=== PATIENT | female | born 1955 | race Caucasian/White ===

== ENCOUNTER 2017-10-03 13:09 | Emergency (ER) | payer BC, MEDICAID ==
--- NOTE | 2017-10-03 13:57 | EDM.PDOC ---
ED HPI GENERAL MEDICAL PROBLEM - General Stated Complaint: FALL ON ICE Time Seen by Provider: 10/03/17 13:31 Source of Information: Reports: Patient History Limitations: Reports: No Limitations - History of Present Illness INITIAL COMMENTS - FREE TEXT/NARRATIVE: Patient presents with right shoulder pain 1.5 hours after falling on the ice on her front step. She says she didn't hit the ground as her right arm hit something that broke her fall but cranked her right arm up above her head. She heard a pop and thought she probably just pulled something; then as the pain wasn't improving came to ER. She denies hitting her head. Denies LOC, head/ neck pain, visual change, back pain. Right Shoulder Pain Score (Numeric/FACES): 4 - Related Data Allergies Allergy/AdvReac Type Severity Reaction Status Date / Time clindamycin Allergy Indigestion Verified 09/20/15 13:08 Penicillins Allergy Other Verified 09/20/15 13:08 Home Meds: Home Meds . [No Known Home Meds] 10/03/17 [History] Past Medical History HEENT History: Reports: Impaired Vision Cardiovascular History: Reports: Hypertension Gastrointestinal History: Reports: Pancreatitis Genitourinary History: Reports: UTI, Recurrent, Other (See Below) Other Genitourinary History: bladder and kidney infection Musculoskeletal History: Reports: Fracture Neurological History: Reports: TIA Psychiatric History: Reports: Anxiety, Depression Endocrine/Metabolic History: Reports: Diabetes, Type II Dermatologic History: Reports: Eczema - Infectious Disease History Infectious Disease History: Reports: Chicken Pox, Measles, Mumps, Rubella - Past Surgical History Musculoskeletal Surgical History: Reports: ORIF, Other (See Below) Social & Family History - Tobacco Use Smoking Status *Q: Current Every Day Smoker Years of Tobacco use: 35 Packs/Tins Daily: 0.5 - Recreational Drug Use Recreational Drug Use: No Review of Systems - Review of Systems Review Of Systems: See Below Constitutional: Denies: Chills, Fever, Weakness Eyes: Denies: Decreased Acuity, Vision Change Ears: Denies: Dizziness Nose: Denies: Epistaxis Mouth/Throat: Denies: Pain, Hoarse Voice Respiratory: Denies: Shortness of Breath, Cough Cardiovascular: Denies: Chest Pain, Syncope GI/Abdominal: Denies: Abdominal Pain, Nausea, Vomiting Genitourinary: Denies: Dysuria, Incontinence Musculoskeletal: Reports: Shoulder Pain, Arm Pain. Denies: Neck Pain, Back Pain , Hand Pain, Leg Pain, Foot Pain Skin: Denies: Cyanosis, Jaundice, Mottled, Pallor, Diaphoresis Neurological: Reports: Tingling (a little in right thumb and long finger). Denies: Confusion, Dizziness, Headache, Numbness, Seizure, Syncope, Trouble Speaking, Difficulty Walking Psychiatric: Denies: Confusion, Agitation ED EXAM, GENERAL - Physical Exam Exam: See Below Exam Limited By: No Limitations General Appearance: Alert, WD/WN, Mild Distress (shoulder pain) Eye Exam: Bilateral Eye: EOMI, Normal Inspection, PERRL Ears: Normal External Exam, Hearing Grossly Normal Nose: Normal Inspection, No Blood Throat/Mouth: Normal Inspection, Normal Lips, Normal Voice, No Airway Compromise Head: Atraumatic, Normocephalic Neck: Normal Inspection, Supple, Non-Tender, Full Range of Motion Respiratory/Chest: No Respiratory Distress, Lungs Clear, Normal Breath Sounds, No Accessory Muscle Use Cardiovascular: Regular Rate, Rhythm, No Murmur Back Exam: Normal Inspection, Full Range of Motion. No: Paraspinal Tenderness, Vertebral Tenderness Extremities: Other (right proximal humerus is painful with movement. Elbow, wrist and hand are pain-free with good ROM. Sensation intact but not quite full /normal in right thumb and long finger.) Neurological: Alert, Oriented, Normal Cognition, No Motor/Sensory Deficits Psychiatric: Normal Affect, Normal Mood Skin Exam: Warm, Dry, Intact, Normal Color, Rash (she has a mild rash in right axilla and lateral chest that she says is from her nicotine patch; it seemed to show up when she smokes while wearing the patch.) Course - Vital Signs Last Recorded V/S: Last Vital Signs Temp 98.9 F 10/03/17 14:14 Pulse 64 10/03/17 14:14 Resp 20 10/03/17 14:14 BP 220/87 H 10/03/17 14:38 Pulse Ox 100 10/03/17 14:14 - Orders/Labs/Meds Orders: Active Orders 24 hr Category Date Time Status Shoulder Comp Rt [CR] Stat Exams 10/03/17 Ordered Acetaminophen/HYDROcodone [[place] 325-5 MG] Med 10/03/17 14:42 Ordered 1 tab PO Q4H PRN Cyclobenzaprine [Flexeril] Med 10/03/17 14:58 Ordered 10 mg PO TID PRN Medication Orders Hydrocodone Bitart/Acetaminophen ([place] 325-5 Mg) 1 tab PO Q4H PRN PRN Reason: shoulder pain Last Admin: 10/03/17 14:48 Dose: 1 tab Cyclobenzaprine HCl (Flexeril) 10 mg PO TID PRN PRN Reason: Muscle Spasm Last Admin: 10/03/17 15:12 Dose: 10 mg Meds: Medications Generic Name Dose Route Start Last Admin Trade Name Freq PRN Reason Stop Dose Admin Hydrocodone Bitart/Acetaminophen 1 tab 10/03/17 14:42 10/03/17 14:48 [place] 325-5 Mg PO 1 tab Q4H PRN Administration shoulder pain Cyclobenzaprine HCl 10 mg 10/03/17 14:58 10/03/17 15:12 Flexeril PO 10 mg TID PRN Administration Muscle Spasm - Re-Assessments/Exams Free Text/Narrative Re-Assessment/Exam: 10/03/17 15:00 Xrays confirm a right non-displaced comminuted proximal humerus fracture. A sling is placed for support and comfort. We discussed a shoulder immobilizer but she doesn't think she could manipulate that on her own. I discussed case with Dr. Ben Metcalf with [facility] who advised follow up with Dr. Teresa on since she wants to stay here in town if possible. She is having frequent painful muscle spasms in her right upper arm so will give her some Flexeril along with Hydrocodone/APAP for use as needed. She will call for appointment with ortho here in [place]. Also discussed her blood pressure which is significantly elevated today. She maintains that she gets regular checks in the clinic and it has been running in a good range since she stopped her blood pressure medications 6-8 months ago. She thinks it is only high today because of her pain. She doesn't want anything for it here in ER since she has metoprolol at home and she has a very high deductible so all medical costs are out of pocket for her so doesn't want metoprolol from ER. She will follow up with her PCP in a couple days for recheck of the blood pressure. Patient remained stable throughout ER course and was discharged to home. Departure - Departure Time of Disposition: 14:40 Disposition: Home, Self-Care 01 Condition: Good Clinical Impression: Proximal humerus fracture Qualifiers: Encounter type: initial encounter Fracture type: closed Fracture morphology: other fracture Fracture alignment: nondisplaced Laterality: right Qualified Code (s): S42.294A - Other nondisplaced fracture of upper end of right humerus, initial encounter for closed fracture - Discharge Information Instructions: Humerus Fracture Treated With Immobilization, [id number] Referrals: Arianna Espinosa MD [Primary Care Provider] - Additional Instructions: 1. Keep your arm in the sling except for showering and occasional elbow range of motion. Avoid activities that would put you at risk for further injury to the shoulder as it may displace the fracture which is in good position right now. 2. Take the pain medication muscle relaxant as directed. 3. Take a metoprolol at home and monitor your blood pressure 2-3 times/day. 4. Follow up with Dr. Keller in the next few days for evaluation of your blood pressure. 5. Return to ER as needed. - My Orders Last 24 Hours: My Active Orders 10/03/17 Shoulder Comp Rt [CR] Stat 10/03/17 14:42 Acetaminophen/HYDROcodone [[place] 325-5 MG] 1 tab PO Q4H PRN 10/03/17 14:58 Cyclobenzaprine [Flexeril] 10 mg PO TID PRN - Assessment/Plan Last 24 Hours: My Active Orders 10/03/17 Shoulder Comp Rt [CR] Stat 10/03/17 14:42 Acetaminophen/HYDROcodone [[place] 325-5 MG] 1 tab PO Q4H PRN 10/03/17 14:58 Cyclobenzaprine [Flexeril] 10 mg PO TID PRN
[2017-10-03 14:39] VITALS: BP 220/87
[2017-10-03] MEDS: Acetaminophen/HYDROcodone 325-5 MG Tab PO PRN (14:48)
[2017-10-03] MEDS: Cyclobenzaprine 10 MG Tab PO PRN (15:12)
== END 2017-10-03 15:15 | disposition home or self-care (01) ==
LOC: KA.ED 13:09
DX: S42.294A Other nondisplaced fracture of upper end of right humerus, initial encounter for closed fracture (principal); R21 Rash and other nonspecific skin eruption; I10 Essential (primary) hypertension; E11.9 Type 2 diabetes mellitus without complications; F17.210 Nicotine dependence, cigarettes, uncomplicated; Z88.0 Allergy status to penicillin; Z88.1 Allergy status to other antibiotic agents; W00.9XXA Unspecified fall due to ice and snow, initial encounter
CPT/HCPCS: 73030; 99283; A9270

== ENCOUNTER 2017-12-04 04:09 | Emergency (ER) | payer BC ==
[2017-12-04] MEDS ORDERED: Albuterol/Ipratropium 3.0-0.5 MG/3 ML Neb Soln ONE (04:53)
--- NOTE | 2017-12-04 04:57 | EDM.PDOC ---
ED HPI GENERAL MEDICAL PROBLEM - General Chief Complaint: General Stated Complaint: sob, cough Time Seen by Provider: 12/04/17 04:49 Source of Information: Reports: Patient History Limitations: Reports: No Limitations - History of Present Illness INITIAL COMMENTS - FREE TEXT/NARRATIVE: Patient is a 62-year-old female who presents to the emergency department this morning with a complaint of cough and chest tightness. Patient states that she is been waking up for the past 3 nights with similar symptoms of coughing fit and then tightness across chest. Symptoms resolved spontaneously. Patient admits to smoking, has productive cough, but unsure of color or consistency, and is not currently on hypertension medication. Patient states that she's been off BP medicine for almost a year because she says that it made her feel weak and it was decided between her and the [place] provider that she did not take medicine anymore. Patient states that she starts and stops medication without conferring with her medical provider. Patient states chest pain feels like a tightness after coughing spells, and then resolves spontaneously. His only had this complaint during the night, and not during the day. Patient denies fever, coughing up blood, nausea, vomiting, diarrhea, out of country travel, lower extremity edema, headache, or any trauma. Onset: Gradual Duration: Intermittent Location: Reports: Chest Quality: Reports: Other (Tightness) Severity: Mild Improves with: Reports: Rest Worsens with: Reports: Breathing Context: Denies: Trauma Associated Symptoms: Reports: Chest Pain, Cough, cough w sputum, Shortness of Breath. Denies: Nausea/Vomiting - Related Data Allergies Allergy/AdvReac Type Severity Reaction Status Date / Time clindamycin Allergy Indigestion Verified 12/04/17 04:13 Penicillins Allergy Other Verified 12/04/17 04:13 Home Meds: Home Meds Glucosamine [Glucosamine Sulfate] 500 mg PO BID 12/04/17 [History] Lutein/Minerals/Vit A,C & E [Ocuvite] 1 tab PO DAILY 12/04/17 [History] Multivitamin [Multivitamins] 1 tab PO BID 12/04/17 [History] Nicotine [Nicotine Patch] 21 mg TD ACBREAKFAST PRN 12/04/17 [History] PNV95/Ferrous Fumarate/FA [ Tablet] 1 tab PO DAILY 12/04/17 [History] guaiFENesin [Mucinex] 600 mg PO BEDTIME PRN 12/04/17 [History] Past Medical History HEENT History: Reports: Impaired Vision Cardiovascular History: Reports: Hypertension Gastrointestinal History: Reports: Pancreatitis Genitourinary History: Reports: UTI, Recurrent, Other (See Below) Other Genitourinary History: bladder and kidney infection Musculoskeletal History: Reports: Fracture Neurological History: Reports: TIA Psychiatric History: Reports: Anxiety, Depression Endocrine/Metabolic History: Reports: Diabetes, Type II Dermatologic History: Reports: Eczema - Infectious Disease History Infectious Disease History: Reports: Chicken Pox, Measles, Mumps, Rubella - Past Surgical History Musculoskeletal Surgical History: Reports: ORIF, Other (See Below) Social & Family History - Caffeine Use Caffeine Use: Reports: Coffee, Soda ED ROS GENERAL - Review of Systems Review Of Systems: ROS reveals no pertinent complaints other than HPI. Constitutional: Reports: No Symptoms HEENT: Reports: No Symptoms Respiratory: Reports: Shortness of Breath, Pleuritic Chest Pain, Cough, Sputum. Denies: Hemoptysis Cardiovascular: Reports: No Symptoms Endocrine: Reports: No Symptoms GI/Abdominal: Reports: No Symptoms : Reports: No Symptoms Musculoskeletal: Reports: No Symptoms Skin: Reports: No Symptoms Neurological: Reports: No Symptoms Psychiatric: Reports: No Symptoms Hematologic/Lymphatic: Reports: No Symptoms Immunologic: Reports: No Symptoms ED EXAM, GENERAL - Physical Exam Exam: See Below Exam Limited By: No Limitations General Appearance: Alert, WD/WN, No Apparent Distress Eye Exam: Bilateral Eye: Normal Inspection Nose: Normal Inspection, Normal Mucosa, No Blood Throat/Mouth: Normal Inspection, Normal Oropharynx, No Airway Compromise Head: Atraumatic, Normocephalic Neck: Normal Inspection, Supple, Non-Tender, Full Range of Motion Respiratory/Chest: No Respiratory Distress, Lungs Clear, Normal Breath Sounds, No Accessory Muscle Use, Chest Non-Tender Cardiovascular: Regular Rate, Rhythm, No Murmur GI/Abdominal: Normal Bowel Sounds, Soft, Non-Tender Back Exam: Normal Inspection. No: CVA Tenderness (L), CVA Tenderness (R) Extremities: Normal Inspection, No Pedal Edema Neurological: Alert, Oriented, Normal Cognition Psychiatric: Normal Affect, Normal Mood Skin Exam: Warm, Dry, Intact, Normal Color, No Rash Lymphatic: No Adenopathy EKG INTERPRETATION EKG Date: 12/04/17 Time: 04:40 Rhythm: NSR Rate (Beats/Min): 86 [place]: Normal P-Wave: Present QRS: LBBB ST-T: Normal QT: Normal Comparison: Change From Previous EKG Course - Orders/Labs/Meds Orders: Active Orders 24 hr Category Date Time Status Cardiac Monitoring [RC] . DIRECTED Care 12/04/17 04:50 Ordered EKG Documentation Completion [RC] ASDIRECTED Care 12/04/17 04:21 Active RT Aerosol Therapy [RC] ASDIRECTED Care 12/04/17 04:51 Ordered Chest 2V [CR] Stat Exams 12/04/17 04:20 Taken CBC WITH AUTO DIFF [HEME] Stat Lab 12/04/17 04:50 Ordered COMPREHENSIVE METABOLIC PN,CMP [CHEM] Stat Lab 12/04/17 04:50 Ordered TROPONIN I [CHEM] Stat Lab 12/04/17 04:50 Ordered Albuterol/Ipratropium [DuoNeb 3.0-0.5 MG/3 ML] Med 12/04/17 05:00 Ordered 3 ml NEB ONETIME EKG 12 Lead [EK] Routine Ther 12/04/17 04:21 Ordered Medication Orders Albuterol/Ipratropium (Duoneb 3.0-0.5 Mg/3 Ml) 3 ml NEB ONETIME ALISON Meds: Medications Generic Name Dose Route Start Last Admin Trade Name Freq PRN Reason Stop Dose Admin Albuterol/Ipratropium 3 ml 12/04/17 05:00 Duoneb 3.0-0.5 Mg/3 Ml NEB ONETIME ALISON - Radiology Interpretation Free Text/Narrative:: Chest x-ray shows no acute cardiopulmonary process - Re-Assessments/Exams Free Text/Narrative Re-Assessment/Exam: 12/04/17 05:33 Patient afebrile, nontoxic appearing, vital signs show hypertension, systolic 180-190 diastolic 90s. Suggested Patient taking lisinopril here in the emergency department, but she refused. While waiting for the lab work results, patient was resting comfortably, snoring loudly, with episodes of apnea. Suggested to the patient that she is highly suspicious for sleep apnea and need to reconsider taking blood pressure medicine if agreed to by her provider. Patient will follow-up at [facility] Wednesday or Wednesday. Departure - Departure Time of Disposition: 05:36 Disposition: Home, Self-Care 01 Condition: Good Clinical Impression: Sleep apnea in adult Hypertension Qualifiers: Hypertension type: unspecified Qualified Code(s): I10 - Essential (primary) hypertension - Discharge Information Instructions: Sleep Apnea, [id number], Hypertension, [id number] Referrals: Arianna Espinosa MD [Primary Care Provider] - Additional Instructions: Follow-up at [facility] within next 2-3 days. Return to emergency for an sooner if symptoms continue or worsen. - My Orders Last 24 Hours: My Active Orders 12/04/17 04:20 Chest 2V [CR] Stat 12/04/17 04:21 EKG Documentation Completion [RC] ASDIRECTED EKG 12 Lead [EK] Routine 12/04/17 04:50 Cardiac Monitoring [RC] . DIRECTED CBC WITH AUTO DIFF [HEME] Stat COMPREHENSIVE METABOLIC PN,CMP [CHEM] Stat TROPONIN I [CHEM] Stat 12/04/17 04:51 RT Aerosol Therapy [RC] ASDIRECTED 12/04/17 05:00 Albuterol/Ipratropium [DuoNeb 3.0-0.5 MG/3 ML] 3 ml NEB ONETIME - Assessment/Plan Last 24 Hours: My Active Orders 12/04/17 04:20 Chest 2V [CR] Stat 12/04/17 04:21 EKG Documentation Completion [RC] ASDIRECTED EKG 12 Lead [EK] Routine 12/04/17 04:50 Cardiac Monitoring [RC] . DIRECTED CBC WITH AUTO DIFF [HEME] Stat COMPREHENSIVE METABOLIC PN,CMP [CHEM] Stat TROPONIN I [CHEM] Stat 12/04/17 04:51 RT Aerosol Therapy [RC] ASDIRECTED 12/04/17 05:00 Albuterol/Ipratropium [DuoNeb 3.0-0.5 MG/3 ML] 3 ml NEB ONETIME Assessment:: Hypertension, suspected sleep apnea Plan: Follow-up at [facility] on Wednesday
[2017-12-04] MEDS ORDERED: Albuterol/Ipratropium 3.0-0.5 MG/3 ML Neb Soln NEB SCH (05:00)
[2017-12-04 05:26] VITALS: BP 200/89
[2017-12-04 05:27] LABS: CHLORIDE,CL 108 mmol/L (98-115); SODIUM,NA 140 mmol/L (136-145)
== END 2017-12-04 05:45 | disposition home or self-care (01) ==
LOC: KA.ED 04:09
DX: I10 Essential (primary) hypertension (principal); G47.30 Sleep apnea, unspecified; F41.9 Anxiety disorder, unspecified; F32.9 Major depressive disorder, single episode, unspecified; E11.9 Type 2 diabetes mellitus without complications; Z88.1 Allergy status to other antibiotic agents; Z88.0 Allergy status to penicillin; Z79.899 Other long term (current) drug therapy; Z87.440 Personal history of urinary (tract) infections; Z86.73 Personal history of transient ischemic attack (TIA), and cerebral infarction without residual deficits
CPT/HCPCS: 36415; 71046; 80053; 84484; 85025; 93005; 94640; 99284

== ENCOUNTER 2017-12-28 02:30 | Emergency (ER) | payer BC ==
--- NOTE | 2017-12-28 03:02 | EDM.PDOC ---
ED HPI GENERAL MEDICAL PROBLEM - General Stated Complaint: severe dyspnea, chest pressure Time Seen by Provider: 12/28/17 02:35 Source of Information: Reports: Patient History Limitations: Reports: No Limitations - History of Present Illness INITIAL COMMENTS - FREE TEXT/NARRATIVE: Patient arrives via ambulance with severe dyspnea and chest heaviness that started an hour ago. She says she has had a few episodes like this but milder over the past couple weeks. Tonight it is much worse. She denies known heart problems. She smokes 1/2 ppd x 42 years and is type II diabetic. She had a DuoNeb in the ambulance which didn't help. - Related Data Allergies Allergy/AdvReac Type Severity Reaction Status Date / Time clindamycin Allergy Indigestion Verified 12/28/17 03:14 Penicillins Allergy Other Verified 12/28/17 03:14 Home Meds: Home Meds Glucosamine [Glucosamine Sulfate] 500 mg PO BID 12/04/17 [History] Lutein/Minerals/Vit A,C & E [Ocuvite] 1 tab PO DAILY 12/04/17 [History] Multivitamin [Multivitamins] 1 tab PO BID 12/04/17 [History] Nicotine [Nicotine Patch] 21 mg TD ACBREAKFAST PRN 12/04/17 [History] PNV95/Ferrous Fumarate/FA [ Tablet] 1 tab PO DAILY 12/04/17 [History] guaiFENesin [Mucinex] 600 mg PO BEDTIME PRN 12/04/17 [History] Albuterol [Ventolin HFA] 2 puff INH QID PRN 12/28/17 [History] Albuterol/Ipratropium [DuoNeb 3.0-0.5 MG/3 ML] 3 ml NEB QID PRN 12/28/17 [ History] Past Medical History HEENT History: Reports: Impaired Vision Cardiovascular History: Reports: Hypertension Gastrointestinal History: Reports: Pancreatitis Genitourinary History: Reports: UTI, Recurrent, Other (See Below) Other Genitourinary History: bladder and kidney infection Musculoskeletal History: Reports: Fracture Neurological History: Reports: TIA Psychiatric History: Reports: Anxiety, Depression Endocrine/Metabolic History: Reports: Diabetes, Type II Dermatologic History: Reports: Eczema - Infectious Disease History Infectious Disease History: Reports: Chicken Pox, Measles, Mumps, Rubella - Past Surgical History Musculoskeletal Surgical History: Reports: ORIF, Other (See Below) Social & Family History - Caffeine Use Caffeine Use: Reports: Coffee, Soda ED ROS GENERAL - Review of Systems Review Of Systems: See Below Constitutional: Denies: Fever, Chills HEENT: Reports: No Symptoms Respiratory: Reports: Shortness of Breath. Denies: Wheezing, Cough, Sputum Cardiovascular: Reports: Chest Pain. Denies: Lightheadedness, Syncope Endocrine: Reports: No Symptoms GI/Abdominal: Reports: No Symptoms : Reports: No Symptoms Musculoskeletal: Reports: No Symptoms Skin: Denies: Cyanosis, Jaundice, Mottled, Pallor, Diaphoresis Neurological: Denies: Confusion, Dizziness, Headache, Weakness, Change in Speech Psychiatric: Reports: Anxiety. Denies: Agitation, Confusion ED EXAM, GENERAL - Physical Exam Exam: See Below Exam Limited By: No Limitations General Appearance: Alert, WD/WN, Moderate Distress, Thin Eye Exam: Bilateral Eye: EOMI, Normal Inspection, PERRL Ears: Normal External Exam, Hearing Grossly Normal Nose: Normal Inspection, No Blood Throat/Mouth: Normal Inspection, Normal Lips, Normal Voice, No Airway Compromise Head: Atraumatic, Normocephalic Neck: Normal Inspection, Full Range of Motion Respiratory/Chest: Lungs Clear, Respiratory Distress. No: Crackles, Rales, Rhonchi, Wheezing, Stridor Cardiovascular: Regular Rate, Rhythm, No Murmur GI/Abdominal: No Distention Extremities: Normal Inspection, Normal Range of Motion, No Pedal Edema Neurological: Alert, Oriented, Normal Cognition, No Motor/Sensory Deficits Psychiatric: Normal Affect, Anxious Skin Exam: Warm, Dry, Intact, Normal Color, No Rash Course - Orders/Labs/Meds Orders: Active Orders 24 hr Category Date Time Status EKG Documentation Completion [RC] ASDIRECTED Care 12/28/17 02:48 Ordered EKG 12 Lead [EK] Routine Ther 12/28/17 02:47 Ordered Labs: Laboratory Tests 12/28/17 12/28/17 12/28/17 Range/Units 02:30 02:30 02:30 WBC 11.5 H (5.0-10.0) 10^3/uL RBC 4.55 (3.80-5.50) 10^6/uL Hgb 14.5 (12.0-16.0) g/dL Hct 43.5 (37.0-47.0) % MCV 95.6 H (82.0-92.0) fL MCH 31.9 H (27.0-31.0) pg MCHC 33.4 (32.0-36.0) g/dL RDW 12.3 (11.5-14.5) % Plt Count 285 (150-300) 10^3/uL MPV 8.7 (7.4-10.4) fL Neut % (Auto) 62.8 (50.0-70.0) % Lymph % (Auto) 26.5 (20.0-40.0) % [place] % (Auto) 5.1 (2.0-8.0) % Eos % (Auto) 3.9 H (1.0-3.0) % Baso % (Auto) 1.7 H (0.0-1.0) % Neut # (Auto) 7.3 H (2.5-7.0) 10^3/uL Lymph # (Auto) 3.0 (1.0-4.0) 10^3/uL [place] # (Auto) 0.6 (0.1-0.8) 10^3/uL Eos # (Auto) 0.4 H (0.1-0.3) 10^3/uL Baso # (Auto) 0.2 H (0.0-0.1) 10^3/uL D-Dimer, Quantitative 533 H (<400) ng/mL Sodium 140 (136-145) mmol/L Potassium 3.9 (3.3-5.3) mmol/L Chloride 106 (98-115) mmol/L Carbon Dioxide 19.3 L (21.0-32.0) mmol/L BUN 30 H (6-25) mg/dL Creatinine 1.02 (0.51-1.17) mg/dL Est Cr Clr Drug Dosing TNP Estimated GFR (MDRD) 55 mL/min Glucose 296 H (70-110) mg/dL Calcium 8.8 (8.7-10.3) mg/dL Troponin I 0.04 (0.00-0.070) ng/mL - Re-Assessments/Exams Free Text/Narrative Re-Assessment/Exam: 12/28/17 03:[address] elevation in anterior leads with a LBBB. Patient is requiring 15 liter via non-rebreather to maintain adequate oxygenation. Discussed case with Dr. Epps, etl analyst, in [facility] who accepted for transfer. Since ALS ambulance brought her here and is ready to take her she was sent on her way and will receive Heparin bolus 4000, Brylinta 180 mg, ASA 324mg and nitro as needed en route. Departure - Departure Time of Disposition: 02:55 Disposition: DC/Tfer to Acute Hospital 02 Reason for Transfer *Q: Primary PCI Indicated Condition: Good Clinical Impression: D-dimer, elevated STEMI (ST elevation myocardial infarction) Qualifiers: Involved coronary artery: unspecified coronary artery Qualified Code(s): I21.3 - ST elevation (STEMI) myocardial infarction of unspecified site Dyspnea Qualifiers: Dyspnea type: acute respiratory distress Qualified Code(s): R06.03 - Acute respiratory distress - My Orders Last 24 Hours: My Active Orders 12/28/17 02:47 EKG 12 Lead [EK] Routine 12/28/17 02:48 EKG Documentation Completion [RC] ASDIRECTED - Assessment/Plan Last 24 Hours: My Active Orders 12/28/17 02:47 EKG 12 Lead [EK] Routine 12/28/17 02:48 EKG Documentation Completion [RC] ASDIRECTED
[2017-12-28 03:27] LABS: CHLORIDE,CL 106 mmol/L (98-115); SODIUM,NA 140 mmol/L (136-145)
[2017-12-28 08:34] VITALS: BP 173/113
== END 2017-12-28 02:45 ==
LOC: KA.ED 02:30
DX: I21.3 ST elevation (STEMI) myocardial infarction of unspecified site (principal); R06.03 Acute respiratory distress; R79.89 Other specified abnormal findings of blood chemistry; E11.9 Type 2 diabetes mellitus without complications; I10 Essential (primary) hypertension; Z88.1 Allergy status to other antibiotic agents; Z88.0 Allergy status to penicillin; Z79.899 Other long term (current) drug therapy
CPT/HCPCS: 36415; 80048; 84484; 85025; 85379; 93005; 99285

== ENCOUNTER 2017-12-31 01:52 | Emergency (ER) | payer BC ==
--- NOTE | 2017-12-31 02:28 | EDM.PDOC ---
ED HPI GENERAL MEDICAL PROBLEM - General Chief Complaint: Respiratory Problem Stated Complaint: gasping breaths Time Seen by Provider: 12/31/17 02:18 Source of Information: Reports: Patient History Limitations: Reports: No Limitations - History of Present Illness INITIAL COMMENTS - FREE TEXT/NARRATIVE: Patient is a 62-year-old female who presents to the emergency department this morning with a complaint of shortness of breath. She describes it as a gasping for air, then spontaneously resolves, and makes it difficult for her to sleep. No chest pain or radiation and these episodes did not occur during the day today. Patient was seen here on Wednesday, December 28 with similar episode. EKG showed left bundle branch block. However Cardiac enzymes are not elevated. Diagnosed with hypoxia and transferred to [facility]. Patient underwent cardiac catheterization and stent placement. Patient states that she's been placed on Brilinta post procedure. Patient denies chest pain, headache, nausea , vomiting, abdominal pain, or fever. Onset: Today, Gradual Duration: Minutes: Location: Reports: Chest Quality: Reports: Same as Previous Episode Severity: Mild Improves with: Reports: None Worsens with: Reports: None Context: Denies: Activity Associated Symptoms: Reports: Shortness of Breath Treatments NETWORK SUPPORT ANALYST: Reports: Breathing Treatments - Related Data Allergies Allergy/AdvReac Type Severity Reaction Status Date / Time clindamycin Allergy Indigestion Verified 12/31/17 02:07 Penicillins Allergy Other Verified 12/31/17 02:07 Home Meds: Home Meds Glucosamine [Glucosamine Sulfate] 500 mg PO BID 12/04/17 [History] Lutein/Minerals/Vit A,C & E [Ocuvite] 1 tab PO DAILY 12/04/17 [History] Multivitamin [Multivitamins] 1 tab PO BID 12/04/17 [History] PNV95/Ferrous Fumarate/FA [ Tablet] 1 tab PO DAILY 12/04/17 [History] Albuterol [Ventolin HFA] 2 puff INH QID PRN 12/28/17 [History] Aspirin 81 mg PO DAILY 12/31/17 [History] Carvedilol 6.25 mg PO BID 12/31/17 [History] Lisinopril 2.5 mg PO DAILY 12/31/17 [History] Ticagrelor [Brilinta] 90 mg PO BID 12/31/17 [History] predniSONE [Prednisone] 10 mg PO DAILY 12/31/17 [History] Past Medical History HEENT History: Reports: Impaired Vision Cardiovascular History: Reports: Hypertension Respiratory History: Reports: Sleep Apnea, Other (See Below) Other Respiratory History: Newly prescribed duonebs by MAE Castellano for shortness of breath. Gastrointestinal History: Reports: Pancreatitis Genitourinary History: Reports: UTI, Recurrent, Other (See Below) Other Genitourinary History: bladder and kidney infection Musculoskeletal History: Reports: Fracture Neurological History: Reports: TIA Psychiatric History: Reports: Anxiety, Depression Endocrine/Metabolic History: Reports: Diabetes, Type II Dermatologic History: Reports: Eczema - Infectious Disease History Infectious Disease History: Reports: Chicken Pox, Measles, Mumps, Rubella - Past Surgical History Musculoskeletal Surgical History: Reports: ORIF, Other (See Below) Social & Family History - Caffeine Use Caffeine Use: Reports: Coffee, Soda ED ROS GENERAL - Review of Systems Review Of Systems: ROS reveals no pertinent complaints other than HPI. Constitutional: Reports: No Symptoms HEENT: Reports: No Symptoms Respiratory: Reports: Shortness of Breath Cardiovascular: Reports: No Symptoms Endocrine: Reports: No Symptoms GI/Abdominal: Reports: No Symptoms : Reports: No Symptoms Musculoskeletal: Reports: No Symptoms Skin: Reports: No Symptoms Neurological: Reports: No Symptoms Psychiatric: Reports: No Symptoms Hematologic/Lymphatic: Reports: No Symptoms Immunologic: Reports: No Symptoms ED EXAM, GENERAL - Physical Exam Exam: See Below Exam Limited By: No Limitations General Appearance: Alert, WD/WN, No Apparent Distress Throat/Mouth: Normal Inspection, Normal Oropharynx, No Airway Compromise Head: Atraumatic, Normocephalic Neck: Normal Inspection Respiratory/Chest: No Respiratory Distress, Lungs Clear, Normal Breath Sounds, No Accessory Muscle Use, Chest Non-Tender Cardiovascular: Regular Rate, Rhythm, No Murmur GI/Abdominal: Normal Bowel Sounds, Soft, Non-Tender Back Exam: Normal Inspection. No: CVA Tenderness (L), CVA Tenderness (R) Extremities: Normal Inspection, No Pedal Edema Neurological: Alert, Oriented, Normal Cognition Psychiatric: Normal Affect, Normal Mood Skin Exam: Warm, Dry, Intact, Normal Color, No Rash EKG INTERPRETATION EKG Date: 12/31/17 Time: 02:05 Rhythm: NSR [place]: Normal P-Wave: Present QRS: LBBB Comparison: No Change Course - Vital Signs Last Recorded V/S: Last Vital Signs Temp 98.8 F 12/31/17 01:52 Pulse 85 12/31/17 01:52 Resp 16 12/31/17 01:52 BP 165/78 H 12/31/17 01:52 Pulse Ox 89 L 12/31/17 01:52 - Re-Assessments/Exams Free Text/Narrative Re-Assessment/Exam: 12/31/17 02:[address] Castro, it operations analyst at [facility]. After reviewing cardiac catheterization procedure notes, and current and prior EKGs, felt that could be related to Brilinta and suggest patient should be considered for transition to Plavix. Patient is afebrile, nontoxic appearing, vital signs stable, saturation 96% on room air,. Patient was given DuoNeb and felt much better. Patient offered admission for observation, however patient refused and states that she will follow-up with [facility] provider as scheduled today. Patient assured me that if she is unable to follow-up at [facility] today that she return to emergency department. 12/31/17 03:05 Departure - Departure Time of Disposition: 03:06 Disposition: Home, Self-Care 01 Condition: Good Clinical Impression: Dyspnea Qualifiers: Dyspnea type: unspecified Qualified Code(s): R06.00 - Dyspnea, unspecified COPD (chronic obstructive pulmonary disease) Qualifiers: COPD type: unspecified COPD Qualified Code(s): J44.9 - Chronic obstructive pulmonary disease, unspecified - Discharge Information Instructions: Shortness of Breath, Adult, [id number] Referrals: Hilaria Castellano SKIVER OPERATOR [Primary Care Provider] - Additional Instructions: Follow-up today with Hilaria at [facility]. Return to emergency department if symptoms continue or worsen. - Assessment/Plan Assessment:: Shortness of breath Plan: Follow-up with [facility] provider as scheduled today
[2017-12-31 02:44] VITALS: BP 143/76
[2017-12-31] MEDS ORDERED: Albuterol/Ipratropium 3.0-0.5 MG/3 ML Neb Soln ONE (02:49)
[2017-12-31] MEDS ORDERED: Albuterol/Ipratropium 3.0-0.5 MG/3 ML Neb Soln NEB ONE (02:51)
== END 2017-12-31 03:15 | disposition home or self-care (01) ==
LOC: SUPCPDRO 01:52 → KA.ED 01:52
DX: J44.9 Chronic obstructive pulmonary disease, unspecified (principal); I10 Essential (primary) hypertension; E11.9 Type 2 diabetes mellitus without complications; Z88.0 Allergy status to penicillin; Z88.1 Allergy status to other antibiotic agents; Z79.899 Other long term (current) drug therapy; Z79.82 Long term (current) use of aspirin
CPT/HCPCS: 94640; 99284

== ENCOUNTER 2018-01-23 01:22 | Emergency (ER) | payer BC ==
[~2018-01-23 01:22] MED LIST: Aspirin 81 MG Tab.Chew PO ONE
[2018-01-23] MEDS ORDERED: Albuterol/Ipratropium 3.0-0.5 MG/3 ML Neb Soln ONE (01:42)
[2018-01-23] MEDS ORDERED: Morphine 2 MG/ML Syringe ONE (01:43)
[2018-01-23] MEDS ORDERED: Albuterol/Ipratropium 3.0-0.5 MG/3 ML Neb Soln INH ONE (01:43)
[2018-01-23] MEDS ORDERED: Morphine 2 MG/ML Syringe IVPUSH ONE (01:45)
[2018-01-23] MEDS ORDERED: LORazepam 2 MG/ML SDV ONE (02:14)
[2018-01-23 02:15] LABS: ANION GAP 23.7 mmol/L (5-15); CHLORIDE,CL 104 mmol/L (98-115); SODIUM,NA 142 mmol/L (136-145)
[2018-01-23] MEDS ORDERED: LORazepam 2 MG/ML SDV IVPUSH ONE (02:17)
--- NOTE | 2018-01-23 03:02 | EDM.PDOC ---
ED HPI GENERAL MEDICAL PROBLEM - General Chief Complaint: Respiratory Problem Stated Complaint: resp distress Time Seen by Provider: 01/23/18 01:22 Source of Information: Reports: EMS, Old Records History Limitations: Reports: Altered Mental Status, Respiratory Distress - History of Present Illness INITIAL COMMENTS - FREE TEXT/NARRATIVE: 62-year-old female was brought in to the emergency room by EMS in acute respiratory distress syndrome. Patient states that she was having increasing shortness of breath and difficulty breathing approximately 11 PM this evening. She tried and not duo neb treatment without relief. She became increasingly anxious and cyanotic in her boyfriend had called EMS. Upon evaluation her blood pressures were 200/120 O2 saturations were not recordable she was tachycardic heart rate was in the 120s and was tachypneic with respirations in the 40s. Upon arrival she was very anxious and confused mildly combative. She has a long history of smoking with COPD and has had a recent coronary stenting 2 weeks ago. She is complaining of chest pain. She was started on nonrebreather mask at 10 L. She was given 481 mg chewable aspirin. She is given 2 of morphine IV. She was started on a nitro drip for chest pain and hypertension. She was converted to BiPAP. TeleMed was activated to help her recording. Onset: Today Onset Date: 01/22/18 Onset Time: 23:00 Duration: Hour(s):, Getting Worse Location: Reports: Chest Quality: Reports: Pressure Severity: Severe Improves with: Reports: None Worsens with: Reports: Breathing Associated Symptoms: Reports: Confusion, Diaphoresis, Shortness of Breath Treatments MANAGER AGRICULTURE: Reports: Other Medication(s) (DuoNeb and albuterol treatment) - Related Data Allergies Allergy/AdvReac Type Severity Reaction Status Date / Time clindamycin Allergy Indigestion Verified 01/23/18 01:29 Penicillins Allergy Other Verified 01/23/18 01:29 Home Meds: Home Meds Glucosamine [Glucosamine Sulfate] 1,500 mg PO DAILY 12/04/17 [History] Lutein/Minerals/Vit A,C & E [Ocuvite] 1 tab PO DAILY 12/04/17 [History] Multivitamin [Multivitamins] 1 tab PO DAILY 12/04/17 [History] PNV95/Ferrous Fumarate/FA [ Tablet] 1 tab PO DAILY 12/04/17 [History] Albuterol [Ventolin HFA] 2 puff INH QID PRN 12/28/17 [History] Aspirin 81 mg PO DAILY 12/31/17 [History] Carvedilol 6.25 mg PO BID 12/31/17 [History] Lisinopril 2.5 mg PO DAILY 12/31/17 [History] Ticagrelor [Brilinta] 90 mg PO BID 12/31/17 [History] predniSONE [Prednisone] 10 mg PO DAILY 12/31/17 [History] Past Medical History HEENT History: Reports: Impaired Vision Cardiovascular History: Reports: Hypertension Respiratory History: Reports: Sleep Apnea, Other (See Below) Other Respiratory History: Newly prescribed duonebs by MAE Castellano for shortness of breath. Gastrointestinal History: Reports: Pancreatitis Genitourinary History: Reports: UTI, Recurrent, Other (See Below) Other Genitourinary History: bladder and kidney infection Musculoskeletal History: Reports: Fracture Neurological History: Reports: TIA Psychiatric History: Reports: Anxiety, Depression Endocrine/Metabolic History: Reports: Diabetes, Type II Dermatologic History: Reports: Eczema - Infectious Disease History Infectious Disease History: Reports: Chicken Pox, Measles, Mumps, Rubella - Past Surgical History Musculoskeletal Surgical History: Reports: ORIF, Other (See Below) Social & Family History - Caffeine Use Caffeine Use: Reports: Coffee, Soda ED ROS GENERAL - Review of Systems Review Of Systems: See Below Constitutional: Reports: No Symptoms HEENT: Reports: No Symptoms Respiratory: Reports: Shortness of Breath Cardiovascular: Reports: Chest Pain, Blood Pressure Problem, Dyspnea on Exertion , Orthopnea. Denies: Syncope GI/Abdominal: Reports: No Symptoms : Reports: No Symptoms Musculoskeletal: Reports: Shoulder Pain Skin: Reports: Cyanosis Neurological: Reports: Confusion Psychiatric: Reports: Agitation, Anxiety, Confusion Hematologic/Lymphatic: Reports: No Symptoms Immunologic: Reports: No Symptoms ED EXAM, GENERAL - Physical Exam Exam: See Below Exam Limited By: Respiratory Distress General Appearance: Alert, Severe Distress Eye Exam: Bilateral Eye: EOMI, PERRL Nose: Normal Inspection, Normal Mucosa Throat/Mouth: Normal Inspection, Normal Oropharynx, Normal Voice, No Airway Compromise Head: Atraumatic Neck: Normal Inspection, Supple, Full Range of Motion. No: Lymphadenopathy (L) , Lymphadenopathy (R) Respiratory/Chest: Respiratory Distress, Decreased Breath Sounds, Wheezing, Accessory Muscle Use, Retractions Cardiovascular: Tachycardia GI/Abdominal: Soft Extremities: Slow Capillary Refill Neurological: Alert, Confused Psychiatric: Anxious Skin Exam: Cyanosis Lymphatic: No Adenopathy EKG INTERPRETATION EKG Date: 01/23/18 Time: 02:30 Rhythm: Other (tachycardia) Rate (Beats/Min): 103 P-Wave: Present QRS: LBBB Comparison: NA - No Prior EKG EKG Interpretation Comments: Sinus tachycardia Biatrial enlargement' Left bundle branch block Abnormal ECG Course - Orders/Labs/Meds Orders: Active Orders 24 hr Category Date Time Status Chest 1V Frontal [CR] Stat Exams 01/23/18 02:08 Ordered ABG [BLOOD GAS ARTERIAL] [BG] Stat Lab 01/23/18 02:09 Ordered Labs: Laboratory Tests 01/23/18 01/23/18 01/23/18 Range/Units 01:35 01:35 01:35 WBC 9.5 (5.0-10.0) 10^3/uL RBC 4.99 (3.80-5.50) 10^6/uL Hgb 15.5 (12.0-16.0) g/dL Hct 47.5 H (37.0-47.0) % MCV 95.2 H (82.0-92.0) fL MCH 31.2 H (27.0-31.0) pg MCHC 32.7 (32.0-36.0) g/dL RDW 12.2 (11.5-14.5) % Plt Count 285 (150-300) 10^3/uL MPV 7.6 (7.4-10.4) fL Neut % (Auto) 57.2 (50.0-70.0) % Lymph % (Auto) 28.4 (20.0-40.0) % [place] % (Auto) 7.8 (2.0-8.0) % Eos % (Auto) 4.9 H (1.0-3.0) % Baso % (Auto) 1.7 H (0.0-1.0) % Neut # (Auto) 5.4 (2.5-7.0) 10^3/uL Lymph # (Auto) 2.7 (1.0-4.0) 10^3/uL [place] # (Auto) 0.7 (0.1-0.8) 10^3/uL Eos # (Auto) 0.5 H (0.1-0.3) 10^3/uL Baso # (Auto) 0.2 H (0.0-0.1) 10^3/uL PT 9.9 (8.9-11.4) SEC INR 1.0 (0.9-1.1) Sodium 142 (136-145) mmol/L Potassium 4.8 (3.3-5.3) mmol/L Chloride 104 (98-115) mmol/L Carbon Dioxide 19.1 L (21.0-32.0) mmol/L Anion Gap 23.7 H (5-15) mmol/L BUN 42 H (6-25) mg/dL Creatinine 0.99 (0.51-1.17) mg/dL Est Cr Clr Drug Dosing TNP Estimated GFR (MDRD) 57 mL/min Glucose 240 mg/dL Calcium 8.9 (8.7-10.3) mg/dL Total Bilirubin 0.6 (0.2-1.0) mg/dL AST 30 (15-37) U/L ALT 32 (12-78) U/L Alkaline Phosphatase 135 H (46-116) IU/L Creatine Kinase 140 (26-276) U/L CK-MB (CK-2) 4.20 (0.00-4.30) ng/mL Troponin I < 0.04 (0.00-0.070) ng/mL B-Natriuretic Peptide 620 H (0-100) pg/mL Total Protein 7.8 (6.4-8.2) g/dL Albumin 3.44 (3.00-4.80) g/dL Meds: Medications Discontinued Medications Generic Name Dose Route Start Last Admin Trade Name Freq PRN Reason Stop Dose Admin Albuterol/Ipratropium Confirm 01/23/18 01:42 Duoneb 3.0-0.5 Mg/3 Ml Administered 01/23/18 01:43 Dose 3 ml .ROUTE .STK-MED ONE Lorazepam Confirm 01/23/18 02:14 Ativan Administered 01/23/18 02:15 Dose 2 mg .ROUTE .STK-MED ONE Morphine Sulfate Confirm 01/23/18 01:43 Morphine Administered 01/23/18 01:44 Dose 2 mg .ROUTE .STK-MED ONE - Re-Assessments/Exams Free Text/Narrative Re-Assessment/Exam: 01/23/18 03:20 Patient was started on BiPAP and her O2 saturations improved up to 90% She was started on a nitro drip and blood pressure stabilized She was given 1 mg IV Ativan and her anxiousness improved She was resting comfortably on BiPAP respiratory distress the and cyanosis improved Departure - Departure Time of Disposition: 15:00 Disposition: DC/Tfer to [facility] Condition: Serious Clinical Impression: Acute respiratory distress syndrome (ARDS), Hypoxia, Status post coronary artery stent placement COPD (chronic obstructive pulmonary disease) Qualifiers: COPD type: unspecified COPD Qualified Code(s): J44.9 - Chronic obstructive pulmonary disease, unspecified - Discharge Information - My Orders Last 24 Hours: My Active Orders 01/23/18 02:08 Chest 1V Frontal [CR] Stat 01/23/18 02:09 ABG [BLOOD GAS ARTERIAL] [BG] Stat - Assessment/Plan Last 24 Hours: My Active Orders 01/23/18 02:08 Chest 1V Frontal [CR] Stat 01/23/18 02:09 ABG [BLOOD GAS ARTERIAL] [BG] Stat Assessment:: Acute respiratory distress syndrome Hypoxia COPD Status post coronary stenting Plan: Patient's was a stabilized on BiPAP, nitro drip, and Ativan for acute respiratory distress syndrome. She was stabilized and maintained on the BiPAP and nitro drip was decreased at 10 mics. Her cyanosis resolved O2 saturations were 90% on BiPAP. When she was stabilized that she was transferred per [facility] to [facility] to the intensive care unit
[2018-01-24 02:03] VITALS: BP 133/78
[2018-01-24] MEDS ORDERED: Sodium Chloride 0.9% 5 ML Syringe FLUSH PRN (02:31)
== END 2018-01-23 02:54 | disposition critical access hospital (66) ==
LOC: KA.ED 01:22
DX: J80 Acute respiratory distress syndrome (principal); Z95.5 Presence of coronary angioplasty implant and graft; J44.9 Chronic obstructive pulmonary disease, unspecified; I10 Essential (primary) hypertension; E11.9 Type 2 diabetes mellitus without complications; F41.9 Anxiety disorder, unspecified; F32.9 Major depressive disorder, single episode, unspecified; Z86.73 Personal history of transient ischemic attack (TIA), and cerebral infarction without residual deficits; Z88.0 Allergy status to penicillin; Z87.440 Personal history of urinary (tract) infections; Z88.1 Allergy status to other antibiotic agents; Z79.899 Other long term (current) drug therapy; Z79.82 Long term (current) use of aspirin
CPT/HCPCS: 36415; 71045; 80053; 82550; 82553; 83880; 84484; 85025; 85610; 94660; 96365; 96375; 99285; A9270; J2060; J2270

== ENCOUNTER 2018-07-11 14:11 | Emergency (ER) | payer BC, OTHER, SELFPAY ==
[2018-07-11] MEDS ORDERED: Aspirin 81 MG Tab.Chew ONE ×2 (14:17→14:26)
[2018-07-11] MEDS ORDERED: Aspirin 81 MG Tab.Chew PO ONE (14:25)
[2018-07-11] MEDS ORDERED: Nitroglycerin 0.4 MG Tab.SL SL ONE ×2 (14:27→15:24)
[2018-07-11] MEDS ORDERED: Nitroglycerin 0.4 MG Tab.SL ONE (14:27)
--- NOTE | 2018-07-11 14:49 | CR ---
[id number] RAD/RAD Chest PA or AP 1V EXAM: RAD Chest PA or AP 1V INDICATION: CHEST PAIN. COMPARISON: January 23, 2018. DISCUSSION: Cardiomediastinal silhouette is stable in size and contour. No infiltrate, effusion, or pneumothorax. Mild pulmonary vascular congestion. IMPRESSION: Mild pulmonary vascular congestion. Tye Ramirez DO 07/11/18 1448 Thank you for allowing us to participate in the care of your patient.
[2018-07-11 14:56] LABS: ANION GAP 20.1 mmol/L (5-15); CHLORIDE,CL 101 mmol/L (98-115); SODIUM,NA 140 mmol/L (136-145)
[2018-07-11] MEDS ORDERED: Nitroglycerin 0.2 MG/HR Transdermal Patch TRDERM ONE (15:00)
--- NOTE | 2018-07-11 15:10 | EDM.PDOC ---
ED HPI GENERAL MEDICAL PROBLEM - General Chief Complaint: Chest Pain Stated Complaint: CHEST PAIN Time Seen by Provider: 07/11/18 14:24 Source of Information: Reports: Patient, Significant Other History Limitations: Reports: No Limitations - History of Present Illness INITIAL COMMENTS - FREE TEXT/NARRATIVE: Patient presents via ambulance with chest pressure and dyspnea that started abruptly at 1400 while riding in a car with her . She says this feels very much like she felt in December 2016 when she had an [facility] and had a stent placed. The dyspnea isn't quite as bad today as then. She also has tingling in her arms and says it is hard to talk because she feels so short of breath. ASA 81mg x 4 and nitro sl are given. About 2 minutes after the nitro the dyspnea and chest pressure improved remarkably. She is on Brilinta. Chest Pain Score (Numeric/FACES): 5 - Related Data Allergies Allergy/AdvReac Type Severity Reaction Status Date / Time clindamycin Allergy Indigestion Verified 07/11/18 14:36 Penicillins Allergy Other Verified 07/11/18 14:36 Home Meds: Home Meds Lutein/Minerals/Vit A,C & E [Ocuvite] 1 tab PO DAILY 12/04/17 [History] Albuterol [Ventolin HFA] 2 puff INH QID PRN 12/28/17 [History] Aspirin 81 mg PO DAILY 12/31/17 [History] Carvedilol 6.25 mg PO BID 12/31/17 [History] Lisinopril 10 mg PO DAILY 12/31/17 [History] Citalopram [Citalopram HBr] 20 mg PO DAILY 07/11/18 [History] Clopidogrel [Plavix] 75 mg PO DAILY 07/11/18 [History] Furosemide 20 mg PO DAILY PRN 07/11/18 [History] Rosuvastatin [Crestor] 20 mg PO DAILY 07/11/18 [History] hydrOXYzine pamoate [Hydroxyzine Pamoate] 25 mg PO DAILY PRN 07/11/18 [History] Past Medical History HEENT History: Reports: Impaired Vision Cardiovascular History: Reports: Hypertension, Stents Other Cardiovascular History: 1 stent placed December Respiratory History: Reports: Sleep Apnea, Other (See Below) Other Respiratory History: Newly prescribed duonebs by Erlandson, D[employer] SPECIALIST for shortness of breath. Gastrointestinal History: Reports: Pancreatitis Genitourinary History: Reports: UTI, Recurrent, Other (See Below) Other Genitourinary History: bladder and kidney infection Musculoskeletal History: Reports: Fracture Neurological History: Reports: TIA Psychiatric History: Reports: Anxiety, Depression Endocrine/Metabolic History: Reports: Diabetes, Type II Dermatologic History: Reports: Eczema - Infectious Disease History Infectious Disease History: Reports: Chicken Pox, Measles, Mumps, Rubella - Past Surgical History Musculoskeletal Surgical History: Reports: ORIF, Other (See Below) Social & Family History - Tobacco Use Smoking Status *Q: Current Every Day Smoker Years of Tobacco use: 20 Packs/Tins Daily: 1 - Caffeine Use Caffeine Use: Reports: Coffee, Soda - Alcohol Use Days Per Week of Alcohol Use: 1 Number of Drinks Per Day: 1 Total Drinks Per Week: 1 - Recreational Drug Use Recreational Drug Use: No ED ROS GENERAL - Review of Systems Review Of Systems: See Below Constitutional: Denies: Fever, Chills, Weakness HEENT: Denies: Throat Pain, Vision Change Respiratory: Reports: Shortness of Breath. Denies: Cough Cardiovascular: Reports: Chest Pain. Denies: Lightheadedness, Syncope GI/Abdominal: Denies: Abdominal Pain, Diarrhea, Vomiting : Reports: No Symptoms Musculoskeletal: Reports: Arm Pain. Denies: Neck Pain, Shoulder Pain Skin: Denies: Cyanosis, Jaundice, Mottled, Pallor, Diaphoresis Neurological: Denies: Confusion, Dizziness, Headache Psychiatric: Reports: Anxiety. Denies: Agitation, Confusion Hematologic/Lymphatic: Denies: Anemia ED EXAM, GENERAL - Physical Exam Exam: See Below Exam Limited By: No Limitations General Appearance: Alert, WD/WN, No Apparent Distress Eye Exam: Bilateral Eye: EOMI, Normal Inspection, PERRL Ears: Normal External Exam, Hearing Grossly Normal Nose: Normal Inspection, No Blood Throat/Mouth: Normal Inspection, Normal Lips, Normal Voice, No Airway Compromise Head: Atraumatic, Normocephalic Neck: Normal Inspection, Supple, Non-Tender, Full Range of Motion. No: Carotid Bruit Respiratory/Chest: No Respiratory Distress, Lungs Clear, Normal Breath Sounds, No Accessory Muscle Use Cardiovascular: Normal Peripheral Pulses, Regular Rate, Rhythm, No Edema, No Gallop, No JVD, No Murmur, No Rub Peripheral Pulses: 2+: Carotid (L), Carotid (R), Radial (L), Radial (R) GI/Abdominal: Normal Bowel Sounds, Soft, Non-Tender, No Organomegaly, No Distention Back Exam: No: CVA Tenderness (L), CVA Tenderness (R) Extremities: Normal Inspection, Normal Range of Motion, Non-Tender, No Pedal Edema Neurological: Alert, Oriented, Normal Cognition, No Motor/Sensory Deficits Psychiatric: Normal Affect, Normal Mood Skin Exam: Warm, Dry, Intact, Normal Color, No Rash Course - Vital Signs Last Recorded V/S: Last Vital Signs Temp 97.1 F 07/11/18 14:43 Pulse 48 L 07/11/18 15:04 Resp 13 07/11/18 15:04 BP 167/59 H 07/11/18 15:04 Pulse Ox 98 07/11/18 15:04 - Orders/Labs/Meds Orders: Active Orders 24 hr Category Date Time Status Cardiac Monitoring [RC] . DIRECTED Care 07/11/18 14:28 Active EKG Documentation Completion [RC] ASDIRECTED Care 07/11/18 14:28 Active EKG Documentation Completion [RC] ASDIRECTED Care 07/11/18 14:57 Ordered EKG 12 Lead [EK] Routine Ther 07/11/18 14:28 Ordered EKG 12 Lead [EK] Routine Ther 07/11/18 14:54 Ordered Labs: Laboratory Tests 07/11/18 07/11/18 Range/Units 14:20 14:20 WBC 8.73 (5.00-10.00) 10^3/uL RBC 4.15 (3.80-5.50) 10^6/uL Hgb 13.4 (12.0-16.0) g/dL Hct 39.2 (37.0-47.0) % MCV 94.5 H (82.0-92.0) fL MCH 32.3 H (27.0-31.0) pg MCHC 34.2 (32.0-36.0) g/dL RDW 11.6 (11.5-14.5) % Plt Count 288 (150-400) 10^3/uL MPV 8.8 (7.4-10.4) fL Immature Gran % (Auto) 0.2 (0.0-5.0) % Neut % (Auto) 62.9 (50.0-70.0) % Lymph % (Auto) 22.6 (20.0-40.0) % [place] % (Auto) 9.9 H (2.0-8.0) % Eos % (Auto) 3.7 H (1.0-3.0) % Baso % (Auto) 0.7 (0.0-1.0) % Immature Gran # (Auto) 0.02 (0.00-0.50) 10^3/uL Neut # (Auto) 5.50 (2.50-7.00) 10^3/uL Lymph # (Auto) 1.97 (1.00-4.00) 10^3/uL [place] # (Auto) 0.86 H (0.10-0.80) 10^3/uL Eos # (Auto) 0.32 H (0.10-0.30) 10^3/uL Baso # (Auto) 0.06 (0.00-0.10) 10^3/uL Sodium 140 (136-145) mmol/L Potassium 3.8 (3.3-5.3) mmol/L Chloride 101 (98-115) mmol/L Carbon Dioxide 22.7 (21.0-32.0) mmol/L Anion Gap 20.1 H (5-15) mmol/L BUN 24 (6-25) mg/dL Creatinine 1.11 (0.51-1.17) mg/dL Est Cr Clr Drug Dosing TNP Estimated GFR (MDRD) 49 mL/min Glucose 93 (75 - 99) mg/dL Calcium 9.3 (8.7-10.3) mg/dL Total Bilirubin 0.5 (0.2-1.0) mg/dL AST 21 (15-37) U/L ALT 35 (12-78) U/L Alkaline Phosphatase 119 H (46-116) IU/L Troponin I < 0.04 (0.00-0.070) ng/mL Total Protein 7.8 (6.4-8.2) g/dL Albumin 4.00 (3.00-4.80) g/dL Meds: Medications Discontinued Medications Generic Name Dose Route Start Last Admin Trade Name Freq PRN Reason Stop Dose Admin Aspirin Confirm 07/11/18 14:17 07/11/18 14:30 Aspirin Administered 07/11/18 14:18 Not Given Dose 243 mg .ROUTE .STK-MED ONE Aspirin 324 mg 07/11/18 14:25 07/11/18 14:29 Aspirin PO 07/11/18 14:26 324 mg ONETIME ONE Administration Aspirin Confirm 07/11/18 14:26 07/11/18 14:30 Aspirin Administered 07/11/18 14:27 Not Given Dose 81 mg .ROUTE .STK-MED ONE Nitroglycerin 0.4 mg 07/11/18 14:27 07/11/18 14:29 Nitrostat SL 07/11/18 14:28 0.4 mg ONETIME ONE Administration Nitroglycerin Confirm 07/11/18 14:27 07/11/18 14:30 Nitrostat Administered 07/11/18 14:28 Not Given Dose 0.4 mg .ROUTE .STK-MED ONE Nitroglycerin 0.2 mg 07/11/18 15:00 07/11/18 15:01 Nitro-Dur 0.2 Mg/Hr TRDERM 07/11/18 15:01 0.2 mg ONETIME ONE Administration - Re-Assessments/Exams Free Text/Narrative Re-Assessment/Exam: 07/11/18 15:18 I discussed case with counselor manager, Dr. Zhang, who wants her transferred up and advised a nitro patch but no heparin. I then discussed with hospitalist, Dr. Tate who accepted for transfer. Patient has been improved since the initial dose of nitro. Discussed findings and recommendations with pt and her . Patient is stable. 07/11/18 15:24 As she was getting ready to leave the chest pressure and tingling in arms returned. BP is 176/53 so another nitro is given. Departure - Departure Time of Disposition: 15:05 Disposition: DC/Tfer to Acute Hospital 02 Reason for Transfer *Q: Other Condition: Good Clinical Impression: Non-STEMI (non-ST elevated myocardial infarction) Referrals: Hilaria Castellano D[employer] W[employer] SPECIALIST [Primary Care Provider] - Forms: ED Department Discharge - My Orders Last 24 Hours: My Active Orders 07/11/18 14:28 Cardiac Monitoring [RC] . DIRECTED EKG Documentation Completion [RC] ASDIRECTED EKG 12 Lead [EK] Routine 07/11/18 14:54 EKG 12 Lead [EK] Routine 07/11/18 14:57 EKG Documentation Completion [RC] ASDIRECTED - Assessment/Plan Last 24 Hours: My Active Orders 07/11/18 14:28 Cardiac Monitoring [RC] . DIRECTED EKG Documentation Completion [RC] ASDIRECTED EKG 12 Lead [EK] Routine 07/11/18 14:54 EKG 12 Lead [EK] Routine 07/11/18 14:57 EKG Documentation Completion [RC] ASDIRECTED
[2018-07-11] MEDS ORDERED: Ondansetron 4 MG/2 ML SDV IVPUSH ONE (15:24)
[2018-07-11 15:26] VITALS: BP 176/53
[2018-07-11] MEDS ORDERED: LORazepam 0.5 MG Tab PO ONE (15:28)
== END 2018-07-11 15:38 ==
LOC: KA.ED 14:11
DX: I21.4 Non-ST elevation (NSTEMI) myocardial infarction (principal); I10 Essential (primary) hypertension; F32.9 Major depressive disorder, single episode, unspecified; E11.9 Type 2 diabetes mellitus without complications; F41.9 Anxiety disorder, unspecified; F17.210 Nicotine dependence, cigarettes, uncomplicated; Z79.82 Long term (current) use of aspirin; Z79.899 Other long term (current) drug therapy; Z87.440 Personal history of urinary (tract) infections; Z88.1 Allergy status to other antibiotic agents; Z88.0 Allergy status to penicillin; Z95.5 Presence of coronary angioplasty implant and graft
CPT/HCPCS: 36415; 71045; 80053; 84484; 85025; 93005; 96374; 99285; A9270-GY; J2405

== ENCOUNTER 2023-11-17 17:30 | Emergency (ER) | payer OTHER ==
[2023-11-17 18:03] VITALS: PULSE 54
[2023-11-17 18:40] VITALS: BP 132/57
[2023-11-17] MEDS ORDERED: Naloxone 0.4 MG/ML SDV IVPUSH PRN (19:28)
[2023-11-17] MEDS: HYDROmorphone 1 MG/ML Syringe IM ONE (19:35)
== END 2023-11-17 21:40 ==
LOC: KA.ED 17:30
DX: S72.001A Fracture of unspecified part of neck of right femur, initial encounter for closed fracture (principal); R07.89 Other chest pain; E11.9 Type 2 diabetes mellitus without complications; I10 Essential (primary) hypertension; Z95.5 Presence of coronary angioplasty implant and graft; Z86.73 Personal history of transient ischemic attack (TIA), and cerebral infarction without residual deficits; Z79.84 Long term (current) use of oral hypoglycemic drugs; Z88.1 Allergy status to other antibiotic agents; Z88.0 Allergy status to penicillin; Z79.82 Long term (current) use of aspirin; Z79.899 Other long term (current) drug therapy; Z79.02 Long term (current) use of antithrombotics/antiplatelets; W19.XXXA Unspecified fall, initial encounter; Y93.89 Activity, other specified
CPT/HCPCS: 51702; 71045; 96372; 99285; J1170